=== PATIENT | female | born 1975 | race Caucasian/White ===

== ENCOUNTER 2021-06-06 20:42 | Emergency (ER) | payer SELFPAY ==
[~2021-06-06] VITALS: Ht 152.4 cm; Wt 50.0 kg
[2021-06-06 20:46] VITALS: BP 116/60
== END 2021-06-07 01:25 | disposition left against medical advice (07) ==
LOC: ER 20:42
DX: R10.9 Unspecified abdominal pain (principal); Z53.21 Procedure and treatment not carried out due to patient leaving prior to being seen by health care provider
CPT/HCPCS: 93005